=== PATIENT | female | born 1970 | race Caucasian/White ===

== ENCOUNTER → 2020-09-13 | Outpatient (CLI) | payer BC ==
--- NOTE | 2020-09-13 16:47 | KCIC ---
EXAM: XR EXAM OF ANKLE_RIGHT 3VIEWS 09/13/2020 11:08 AM CLINICAL INDICATION: Acute right lateral ankle pain, rolled ankle COMPARISON: None TECHNIQUE: 3 views of the right ankle FINDINGS: No acute fracture. Alignment is normal. Talar dome is intact. No focal soft tissue abnorma lity. IMPRESSION: No acute osseous abnormality. Electronically signed by: Evon Olivares MD (09/13/2020 4:44 PM) [id number]
== END ==
LOC: KCIC 11:04
PROVIDERS: ATTEND Family Medicine
DX: M25.571 Pain in right ankle and joints of right foot (principal)
CPT/HCPCS: 73610